=== PATIENT | female | born 1990 | race Caucasian/White ===

== ENCOUNTER 2016-12-22 17:05 | Inpatient (IN) | payer OTHER ==
[~2016-12-22] VITALS: Ht 162.6 cm; Wt 63.5 kg
[2016-12-22] MEDS ORDERED: Lactated Ringer's 1,000 ML IV PRN (17:18)
[2016-12-22] MEDS ORDERED: Oxytocin 30 Units/500 mL LR 30 UNITS in IV Premix 1 EACH IV PRN ×2 (17:20→23:05)
[2016-12-22] MEDS ORDERED: Hemorrhage Kit, Post Partum XX ONE (17:20)
[2016-12-22] MEDS ORDERED: Oxytocin 10 Unit/mL Inj IM PRN (17:20)
[2016-12-22] MEDS ORDERED: Methylergonovine 0.2 mg/mL Inj IM PRN (17:20)
[2016-12-22] MEDS ORDERED: Sodium Chloride LOK Flush 10 mL Syringe IVFLUSH PRN (17:20)
[2016-12-22] MEDS ORDERED: Carboprost 250 mCg/mL Inj IM PRN (17:20)
[2016-12-22 18:10] LABS: Mean Corpuscular Volume 86.7 fL (81-100)
[2016-12-22] MEDS ORDERED: Lactated Ringer's 1,000 ML IV SCH ×2 (23:02→23:55)
[2016-12-22] MEDS ORDERED: Lactated Ringer's 500 ML IV ONE (23:55)
[2016-12-22] MEDS ORDERED: fentaNYL 2 mCg/mL-Bupiv 0.125% 100 ML EPIDURAL SCH (23:55)
[2016-12-22] MEDS ORDERED: Atropine 1 mg/10 mL (Code) Syringe IVPUSH PRN (23:55)
[2016-12-22] MEDS ORDERED: Ondansetron 2 mg/mL 2 mL Inj IVPUSH PRN (23:55)
[2016-12-22] MEDS ORDERED: EPHEDrine Sulfate 50 mg/mL Inj IVPUSH PRN (23:55)
--- NOTE | 2016-12-22 23:57 | PCM.HPANE ---
Patient Data Date of Service: Dec 22, 2016 Surgeon Admitting Provider:Frank Sevilla MD Attending Provider:Frank Sevilla MD Primary Care Physician:Mei Marshall MD Other Provider: Reason for Visit Term Labor Check TERM LABOR CHECK Ht/WT & BMI Height (Centimeters): 162 Weight (Kilograms): 63 Body Mass Index 24.0 Allergies Coded Allergies: No Known Allergies (Verified Allergy, Unknown, 02/21/15) Diabetes History Hx Diabetes?: No MRSA MRSA: No Medications Hypertension Medication: No Home Meds Incl Beta Nicko: No History History of ENT Problems?: No Hx of Heart Problems?: No Hx of Respiratory Problem?: No Hx Neurologic Problems?: No Hx of GI Problems?: No Hx of Problems?: No Female Hx: Positive for:: Currently Hx Musculoskeletal Problems?: No Hx of Psycho/Social Problems?: No Hx Any Other Health Problems?: No Hx Diabetes: No Smoking Status: Never Smoker Stop/Bang Risk Assessment Category Category 1A: Patient has history of documented sleep apnea, and HAS NOT received any narcotic, sedative or anesthesia administration during this stay. Category 1B: Patient has history of documented sleep apnea, and HAS received any narcotic , sedative or anesthesia administration during this stay Category 2: Patient has SUSPECTED Obstructive Sleep Apnea, and HAS received any narcotic , sedative or anesthesia administration during this stay. Category 3: Patient has SUSPECTED Obstructive Sleep Apnea and HAS NOT received narcotic, sedative or anesthesia administration during this stay. Category 4: Outpatient in Procedural Areas with known sleep apnea or who screen positive for High Risk via the STOP/BANG questionnaire. Meds/Labs/Diagnostics Labs Test 12/22/16 17:55 White Blood Count 7.8th/mm3 (3.8-10.1) Red Blood Count 4.13mil/mm3 (3.90-5.20) Hemoglobin 12.4g/dL (12.0-15.6) Hematocrit 35.8% (35.0-46.0) Mean Corpuscular Volume 86.7fL (81-100) Mean Corpuscular Hemoglobin 30.0pg (27.0-35.0) Mean Corpuscular Hemoglobin Concent 34.6% (32.0-37.0) Red Cell Distribution Width 12.2% (12.3-15.4) Platelet Count 115bil/L (150-400) Plan Impression Patient chart reviewed, patient interviewed and anesthestic plan with risks, benefits, and alternatives discussed, and informed consent obtained. Mookie Noonan MD Dec 22, 2016 23:57
[2016-12-23] MEDS ORDERED: Sodium Chloride LOK Flush 10 mL Syringe IVFLUSH SCH (00:30)
[2016-12-23] MEDS ORDERED: Lactated Ringer's 1,000 ML IV SCH (00:48)
[2016-12-23] MEDS ORDERED: Benzocaine (Dermoplast) 20% 60 Gm Spray TOPICAL PRN (00:50)
[2016-12-23] MEDS ORDERED: Oxytocin 10 Unit/mL Inj IM PRN (00:50)
[2016-12-23] MEDS ORDERED: Oxytocin 30 Units/500 mL LR 30 UNITS in IV Premix 1 EACH IV PRN (00:50)
[2016-12-23] MEDS ORDERED: HYDROcodone-APAP 5-325 mg Tablet PO PRN (00:50)
[2016-12-23] MEDS ORDERED: Carboprost 250 mCg/mL Inj IM PRN (00:50)
[2016-12-23] MEDS ORDERED: Witch Hazel-Glycerin Pads TOPICAL PRN (00:50)
[2016-12-23] MEDS ORDERED: Hemorrhage Kit, Post Partum XX ONE (00:50)
[2016-12-23] MEDS ORDERED: Influenza (Adult) Vaccine 0.5 mL Syringe IM ONE (00:50)
[2016-12-23] MEDS ORDERED: LANOlin HPA 7 Gm Ointment TOPICAL PRN (00:50)
[2016-12-23] MEDS ORDERED: Methylergonovine 0.2 mg/mL Inj IM PRN (00:50)
--- NOTE | 2016-12-23 01:21 | PROCED ---
[address] [address] PROCEDURE NOTE PATIENT: MARIA L VALENTINE : 1990 MR#: [id number] ADMIT: 12/22/2016 JOB ID: [id number] DATE OF SERVICE: 12/23/2016 at 12:09 a.m. POSTOPERATIVE DIAGNOSIS(ES): PREOPERATIVE DIAGNOSIS(ES): SURGEON: Frank Sevilla MD DELIVERY SUMMARY: On December 23, 2016, at 12:09 a.m., this 26-year-old, female, at 38-1/2 weeks estimated gestational age delivered a 6 pound 4 ounce female with Apgars of 8 and 9, by normal vaginal delivery. The patient presented having spontaneously ruptured her membranes at 4:30 p.m. She was not alok very aggressively at first. She slowly entered labor over the next couple of hours and, at 10 p.m., was 4 cm. She requested an epidural at 12 a.m., but by 12:09, she had delivered. The patient's fluid had been clear throughout and she had no fevers. She was alok every 4-6 minutes throughout and handled pushing out her baby in excellent form, even without an epidural. The placenta delivered approximately 10 minutes later spontaneously and intact with a three-vessel cord. The patient had no significant tears. Her bleeding was 200 cc. Her uterus was found to be firm, her cervix intact, and her rectum intact. There were no other complications of delivery. The patient was in excellent condition following delivery, and counts were correct x2.
[2016-12-24 06:59] LABS: Mean Corpuscular Hemoglobin 29.3 pg (27.0-35.0); Mean Corpuscular Volume 88.9 fL (81-100)
--- NOTE | 2016-12-24 09:04 | PCM.DC.OB ---
Obstetrical Discharge Summary Date of Service Dec 24, 2016 Date of hospital admission Dec 22, 2016 at 17:14 Date of Discharge: Dec 24, 2016 Providers Admitting Physician: Frank Sevilla MD Primary Care Physician: Mei Marshall MD Attending Physician: Frank Sevilla MD Problems: (1) (normal spontaneous vaginal delivery) Onset Date: 02/21/2015 Status: Acute ICD Code: O80 Consultations none Invasive procedures NVD Date of Procedure: Dec 23, 2016 Hospital Course: Patient presented SROM and entered labor. Progressed in normal fashion with a little help from pitocin. Delivered without complication. Recovered in excellent fashion. Follow-up plan See me in 8 weeks Discharge Diet: No restrictions Discharge Activity-General: Pelvic Rest for 6 weeks, Try not to overdue, Be up and about, Balance rest and activity, Activity as pain allows, Activity as energy allows, No lifting >15 pounds for 2 weeks Frank Sevilla MD Dec 24, 2016 09:04
--- NOTE | 2016-12-24 09:05 | PCM.DIOB ---
Obstetrical Disch Instruction Date of Service: Dec 24, 2016 Dates of Hospitalization Date of Hospital Admission Dec 22, 2016 at 17:14 Providers Admitting Physician: Frank Sevilla MD Primary Care Physician: Mei Marshall MD Attending Physician: Frank Sevilla MD Discharge Diagnosis Problems: (1) (normal spontaneous vaginal delivery) Onset Date: 02/21/2015 Status: Acute ICD Code: O80 Diet Discharge Diet: No restrictions Activity Discharge Activity-General: Pelvic Rest for 6 weeks, Try not to overdue, Be up and about, Balance rest and activity, Activity as pain allows, Activity as energy allows, No lifting >15 pounds for 2 weeks Dressing and Incisional Care Hygiene: May shower, Perineal care, Sitz bath, Dermoplast spray, Witch Mercedes pads Follow Up Plan Follow-up Provider (F9): Frank Sevilla MD Follow-up appointment: Weeks (8) Call your provider for: Fever or Chills, Shortness of breath, Heavy vaginal bleeding, Excessive constipation, Vaginal discomfort, Red painful breasts Frank Sevilla MD Dec 24, 2016 09:05
[2016-12-24] MEDS ORDERED: IBUP800T28 PO (09:06)
[2016-12-24 09:11] VITALS: BP 103/53; PULSE 55; RESP 18
== END 2016-12-24 09:30 | disposition home or self-care (01) | DRG 775 ==
LOC: FBCO 17:05 → FBC 17:14
PROVIDERS: ADMIT Family Medicine; ATTEND Family Medicine
DX: O80 Encounter for full-term uncomplicated delivery (principal); Z37.0 Single live birth; Z3A.38 38 weeks gestation of pregnancy